=== PATIENT | male | born 1935 | race Caucasian/White ===

== ENCOUNTER 2017-07-06 09:39 | Emergency (ER) | payer MEDICARE, OTHER ==
--- NOTE | 2017-07-06 10:35 | RAD ---
EXAM: LEFT HAND 3 VIEWS: HISTORY: Pain. COMPARISON: None. FINDINGS: There is severe degenerative change of the 1st carpometacarpal joint space as well as the scaphotrape zium joint space. The trapezium and trapezoid bones appear to be irregular. Better interrogation wi th MRI would be beneficial. There is also irregularity involving the lunate bone. The possibility o f a scapholunate ligamentous injury cannot be excluded. There is dorsal soft tissue swelling. Correlate for possible infection. Distal radius and ulna do not demonstrate any obvious fractures. No evidence of fracture with regards to the phalanx. There are degenerative changes in interphalange al joint spaces, greatest in the 1st interphalangeal joint space. IMPRESSION: Extensive degenerative changes. Irregularity involving the carpal bones as above. Findings are pres umed to be on the basis of degenerative change. However, given soft tissue swelling, other more aggr essive processes cannot be excluded. MRI is recommended. POS: [facility]
[2017-07-06 11:35] LABS: #Eosinphils 0.1 thou/uL (0.0-0.7); #Lymphocytes 1.7 thou/uL (1.20-3.40); #Monocytes 1.1 thou/uL (0.11-0.59); #Neutrophils 4.8 thou/uL (1.40-6.50); %Basophils 0.2 % (0.0-1.0); %Eosinophils 1.5 % (0.0-10.0); %Lymphocytes 21.9 % (21.0-51.0); %Monocytes 14.1 % (0.0-10.0); Hematocrit 40.7 % (42.0-52.0); Mean Platelet Volume 7.5 fL (7.4-10.4); Red Blood Cell (RBC) Count 4.36 mill/uL (4.70-6.10); White Blood Cell (WBC) Count 7.7 thou/uL (4.8-10.8)
[2017-07-06 11:56] LABS: ALT (SGPT) 13 U/L (8-55); AST (SGOT) 23 U/L (5-34); Alkaline Phosphatase 88 U/L (40-150); Anion Gap 9 mmol/L (10-20); BUN (Urea Nitrogen) 17 mg/dL (8.4-25.7); Bilirubin, Total 1.2 mg/dL (0.2-1.2); Calc. Creatinine Clearance 0 mL/min (70-130); Calcium 9.1 mg/dL (7.8-10.44); Carbon Dioxide 28 mmol/L (23-31); Chloride 104 mmol/L (98-107); Estimated GFR-MDRD Greater than 90; Globulin 3.4 g/dL (2.4-3.5); Protein, Total 7.1 g/dL (5.8-8.1); Uric Acid 4.3 mg/dL (3.5-7.2)
[2017-07-06] MEDS ORDERED: traMADol HCl 50 MG TAB ONE (13:43)
== END 2017-07-06 13:52 | disposition home or self-care (01) ==
LOC: ERS 09:39
DX: M10.9 Gout, unspecified (principal); Z85.46 Personal history of malignant neoplasm of prostate
CPT/HCPCS: 36415; 80053; 82550; 84550; 85025; 85652; 86140

== ENCOUNTER 2021-01-30 22:58 | Inpatient (IN) | payer MEDICARE, OTHER ==
[2021-01-31 01:48] LABS: #Basophils 0.1 thou/uL (0.0-0.2); #Eosinphils 0.1 thou/uL (0.0-0.7); #Lymphocytes 1.5 thou/uL (1.20-3.40); #Monocytes 0.7 thou/uL (0.11-0.59); #Neutrophils 6.8 thou/uL (1.40-6.50); %Basophils 0.7 % (0.0-1.0); %Eosinophils 1.4 % (0.0-10.0); %Lymphocytes 16.5 % (21.0-51.0); %Monocytes 7.9 % (0.0-10.0); %Neutrophils 73.4 % (42.0-75.0); Hemoglobin 13.7 g/dL (14.0-18.0); Mean Corpuscular HGB CONC 32.9 g/dL (32.0-36.0); Mean Corpuscular Hemoglobin 32.4 pg (27.0-31.0); Mean Corpuscular Volume 98.4 fL (78.0-98.0); Mean Platelet Volume 7.5 fL (7.4-10.4); Platelet Count 182 thou/uL (130-400); RBC Distribution Width 13.1 % (11.5-14.5); Red Blood Cell (RBC) Count 4.22 mill/uL (4.70-6.10); White Blood Cell (WBC) Count 9.3 thou/uL (4.8-10.8)
[2021-01-31 01:59] LABS: ALT (SGPT) 16 U/L (8-55); AST (SGOT) 40 U/L (5-34); Albumin 3.8 g/dL (3.4-4.8); Alkaline Phosphatase 116 U/L (40-110); Anion Gap 19 mmol/L (10-20); BUN (Urea Nitrogen) 17 mg/dL (8.4-25.7); Bilirubin, Total 1.4 mg/dL (0.2-1.2); Calc. Creatinine Clearance 0 mL/min (70-130); Calcium 9.8 mg/dL (7.8-10.44); Carbon Dioxide 25 mmol/L (23-31); Chloride 95 mmol/L (98-107); Globulin 4.3 g/dL (2.4-3.5); Glucose 124 mg/dL (83-110); Potassium 4.1 mmol/L (3.5-5.1); Protein, Total 8.1 g/dL (5.8-8.1); Sodium 135 mmol/L (136-145)
[2021-01-31] MEDS ORDERED: Lorazepam 2 MG/ML VIAL ONE (02:17)
[2021-01-31 03:00] LABS: Bilirubin Negative (Negative); Blood, Urine Negative (Negative); Clarity Clear (Clear); Glucose, Urine (Dipstick) Normal (Negative); Ketone, Urine Negative (Negative); Leukocyte Negative Leu/uL (Negative); Nitrite Negative (Negative); Protein, Urine (Dipstick) Negative (Neg-Trace); Urobilinogen Normal mg/dL (Less than 2); pH, Urine 6.5 (5.0-9.0)
[2021-01-31] MEDS ORDERED: Benzocaine 20% Spray 60 ML CAN ONE (03:06)
[2021-01-31] MEDS ORDERED: Sodium Chloride 0.9% 1,000 ML IV SCH ×2 (04:30→10:16)
[2021-01-31] MEDS ORDERED: Ondansetron ODT 4 MG TAB SL PRN (04:30)
[2021-01-31] MEDS ORDERED: Ondansetron PF 4 MG/2 ML Vial IVP PRN ×2 (04:30→10:16)
[2021-01-31 05:37] VITALS: BMI 31.6
[2021-01-31] MEDS ORDERED: CEFAZOLIN 2 GM in Premix Bag 1 BAG IVPB SCH (10:15)
[2021-01-31] MEDS ORDERED: hydrALAZINE 20 MG/ML VIAL SLOW IVP PRN (10:16)
[2021-01-31] MEDS ORDERED: Ondansetron ODT 4 MG TAB PO PRN (10:16)
[2021-01-31] MEDS ORDERED: Ketorolac Tromethamine 30 MG/ML VIAL IVP SCH (10:30)
[2021-01-31] MEDS ORDERED: Acetaminophen 500 MG TAB PO SCH (10:30)
[2021-01-31] MEDS ORDERED: Gabapentin 300 MG CAP PO SCH (10:30)
[2021-01-31 15:52] LABS: SARS-CoV-2 PCR by NAA Not Detected (NotDetected)
[2021-01-31] MEDS: Famotidine 20 MG TAB PO SCH (21:12)
[2021-01-31] MEDS: Enoxaparin Sodium 40 MG/0.4 ML SYRINGE SC SCH (21:12)
[2021-02-01] MEDS: Famotidine 20 MG TAB PO SCH ×2 (08:38→21:41)
[2021-02-01] MEDS: Amlodipine 10 MG TAB PO SCH (08:38)
[2021-02-01] MEDS: Allopurinol 300 MG TAB PO SCH (08:38)
[2021-02-01] MEDS: Lisinopril 10 MG TAB PO SCH (08:38)
[2021-02-01] MEDS ORDERED: Sodium Chloride 0.9% 1,000 ML IV SCH (14:30)
[2021-02-01] MEDS: Sodium Chloride 0.9% 1,000 ML IV SCH (17:39)
[2021-02-01] MEDS: Enoxaparin Sodium 40 MG/0.4 ML SYRINGE SC SCH (21:41)
[2021-02-02] MEDS: Sodium Chloride 0.9% 1,000 ML IV SCH ×2 (01:08→09:09)
[2021-02-02] MEDS: Lisinopril 10 MG TAB PO SCH (09:10)
[2021-02-02] MEDS: Amlodipine 10 MG TAB PO SCH (09:10)
[2021-02-02] MEDS: Allopurinol 300 MG TAB PO SCH (09:10)
[2021-02-02] MEDS: Famotidine 20 MG TAB PO SCH ×2 (09:10→21:30)
[2021-02-02] MEDS ORDERED: Lidocaine 1% w/Epinephrine 1:100K 20 ML VIAL ONE (14:43)
[2021-02-02] MEDS ORDERED: Bupivacaine 0.25% HCL 30 ML VIAL ONE (14:43)
[2021-02-02] MEDS ORDERED: Fentanyl 100 MCG/2 ML VIAL ONE (14:46)
[2021-02-02] MEDS ORDERED: PHENYLEPHRINE-NS 100 MCG/ML 10 ML SYRINGE ONE (15:10)
[2021-02-02] MEDS ORDERED: PROPOFOL 200 MG/20 ML VIAL ONE (15:10)
[2021-02-02] MEDS ORDERED: Rocuronium Bromide 10 MG/ML (10ML VIAL) ONE (15:10)
[2021-02-02] MEDS ORDERED: Lidocaine 1% PF 5 ML VIAL ONE (15:10)
[2021-02-02] MEDS ORDERED: Dexamethasone 20 MG/5 ML VIAL ONE (15:10)
[2021-02-02] MEDS ORDERED: Ibuprofen 600 MG TAB PO PRN (15:20)
[2021-02-02] MEDS ORDERED: Acetaminophen 500 MG TAB PO PRN (15:20)
[2021-02-02] MEDS ORDERED: SUGAMMADEX SODIUM 500 MG/5 ML VIAL ONE (17:34)
[2021-02-02] MEDS ORDERED: Promethazine HCl 25 MG/ML VIAL IM PRN (18:03)
[2021-02-02] MEDS ORDERED: Promethazine HCl 25 MG/ML VIAL IVPB PRN (18:03)
[2021-02-02] MEDS ORDERED: Ondansetron HCl/PF 4 MG/2 ML Vial IVP PRN (18:03)
[2021-02-02] MEDS: traMADol HCl 50 MG TAB PO PRN ×2 (19:33→23:31)
[2021-02-02] MEDS: Enoxaparin Sodium 40 MG/0.4 ML SYRINGE SC SCH (21:31)
[2021-02-03 08:00] VITALS: BP 117/75; TEMP 98.1
[2021-02-03] MEDS ORDERED: Polyethylene Glycol 3350 17 GM Packet PO SCH (09:00)
== END 2021-02-03 09:00 | disposition home or self-care (01) | DRG 352 ==
LOC: ERS 22:58 → SJJU 01-31 02:03
PROVIDERS: ADMIT Specialist; ATTEND Specialist
PROC: 0D9670Z Drainage of Stomach with Drainage Device, Via Natural or Artificial Opening (ICD-10-PCS; 2021-01-31)
PROC: 0YUA4JZ Supplement Bilateral Inguinal Region with Synthetic Substitute, Percutaneous Endoscopic Approach (ICD-10-PCS; principal; 2021-02-02)
PROC: 8E0W4CZ Robotic Assisted Procedure of Trunk Region, Percutaneous Endoscopic Approach (ICD-10-PCS; 2021-02-02)
DX: K40.01 Bilateral inguinal hernia, with obstruction, without gangrene, recurrent (principal); Z20.822 Contact with and (suspected) exposure to COVID-19; I25.10 Atherosclerotic heart disease of native coronary artery without angina pectoris; E78.5 Hyperlipidemia, unspecified; I10 Essential (primary) hypertension; I48.91 Unspecified atrial fibrillation; G47.30 Sleep apnea, unspecified; Z95.1 Presence of aortocoronary bypass graft; Z85.46 Personal history of malignant neoplasm of prostate; Z79.899 Other long term (current) drug therapy; Z99.89 Dependence on other enabling machines and devices
CPT/HCPCS: 71045; 74018; 74176; 80053; 81003; 85025; 96374; C1781; J0690; J1100; J1650; J2060; J2704; J3010; S0020; U0003; U0005

== ENCOUNTER 2021-12-27 12:05 | Outpatient (CLI) | payer MEDICARE, OTHER ==
[2021-12-27 14:00] LABS: Hemoglobin 11.4 g/dL (13.5-17.5); Mean Corpuscular HGB CONC 32.5 g/dL (32.0-36.0); Mean Corpuscular Volume 98.6 fl (81.2-95.1); Mean Platelet Volume 10.4 fl (7.4-10.4); Platelet Count 120 10x3/uL (150-450); RBC Distribution Width 14.5 % (11.5-14.5); Red Blood Cell (RBC) Count 3.56 10x6/uL (4.32-5.72); White Blood Cell (WBC) Count 5.6 10x3/uL (3.5-10.5)
[2021-12-27 14:24] LABS: Anion Gap 15 mmol/L (10-20); BUN (Urea Nitrogen) 17 mg/dL (8.4-25.7); Calc. Creatinine Clearance 0 mL/min (70-130); Calcium 8.8 mg/dL (7.8-10.44); Carbon Dioxide 26 mmol/L (23-31); Chloride 107 mmol/L (98-107); Glucose 85 mg/dL (83-110); Potassium 4.4 mmol/L (3.5-5.1); Sodium 144 mmol/L (136-145)
[2021-12-28 00:01] LABS: SARS-CoV-2 PCR by NAA Not Detected (NotDetected)
== END 2021-12-27 12:06 | disposition home or self-care (01) ==
LOC: LABBT 12:05
PROVIDERS: ATTEND Student in an Organized Health Care Education/Training Program
DX: Z01.818 Encounter for other preprocedural examination (principal); R04.0 Epistaxis; D69.9 Hemorrhagic condition, unspecified; J34.89 Other specified disorders of nose and nasal sinuses; Z20.822 Contact with and (suspected) exposure to COVID-19
CPT/HCPCS: 80048; 85027; 93005; U0003; U0005; 93010

== ENCOUNTER 2021-12-28 09:27 | Day surgery (SDC) | payer MEDICARE, OTHER ==
[2021-12-27 12:59] VITALS: BMI 31.1
[2021-12-28] MEDS ORDERED: AFRIN NASAL MIST 15 ML BOT ONE ×3 (09:44→12:05)
[2021-12-28] MEDS ORDERED: Lidocaine 1% w/Epinephrine 1:100K 20 ML VIAL ONE (10:48)
[2021-12-28] MEDS ORDERED: fentaNYL Citrate/PF 100 MCG/2 ML SYRINGE ONE (11:03)
[2021-12-28] MEDS ORDERED: SUGAMMADEX SODIUM 200 MG/2 ML VIAL ONE (11:03)
[2021-12-28] MEDS ORDERED: Lidocaine 1% PF 5 ML VIAL ONE (11:20)
[2021-12-28] MEDS ORDERED: Ondansetron PF 4 MG/2 ML Vial ONE (11:20)
[2021-12-28] MEDS ORDERED: Glycopyrrolate 0.2 MG/ML 5 ML SYRINGE ONE (11:20)
[2021-12-28] MEDS ORDERED: Rocuronium Bromide 10 MG/ML (10ML VIAL) ONE (11:20)
[2021-12-28] MEDS ORDERED: PROPOFOL 200 MG/20 ML VIAL ONE (11:20)
[2021-12-28] MEDS ORDERED: ePHEDrine 50 MG/ML VIAL ONE (11:20)
== END 2021-12-28 14:20 | disposition home or self-care (01) ==
LOC: SDC 09:27
PROVIDERS: ATTEND Student in an Organized Health Care Education/Training Program
PROC: 093K8ZZ Control Bleeding in Nasal Mucosa and Soft Tissue, Via Natural or Artificial Opening Endoscopic (ICD-10-PCS; principal; 2021-12-28)
DX: R04.0 Epistaxis (principal); J34.89 Other specified disorders of nose and nasal sinuses; D69.9 Hemorrhagic condition, unspecified; M10.9 Gout, unspecified; I48.91 Unspecified atrial fibrillation; I10 Essential (primary) hypertension; G47.33 Obstructive sleep apnea (adult) (pediatric); Z85.46 Personal history of malignant neoplasm of prostate; Z79.899 Other long term (current) drug therapy; Z95.1 Presence of aortocoronary bypass graft
CPT/HCPCS: 93005; 93010; J2405; J2704; J3490

== ENCOUNTER 2022-03-17 14:00 | Outpatient (CLI) | payer MEDICARE, OTHER | END 2022-03-17 14:01 | disposition home or self-care (01) | LOC: CTENTCT 14:00 | PROVIDERS: ATTEND Student in an Organized Health Care Education/Training Program | DX: J32.9 Chronic sinusitis, unspecified (principal) | CPT/HCPCS: 70486 ==

== ENCOUNTER 2022-04-07 08:52 | Outpatient (CLI) | payer MEDICARE, OTHER ==
[2022-04-07 11:13] LABS: Hemoglobin 12.4 g/dL (13.5-17.5); Mean Corpuscular HGB CONC 33.1 g/dL (32.0-36.0); Mean Corpuscular Hemoglobin 31.7 pg (27.0-33.0); Mean Corpuscular Volume 95.9 fl (81.2-95.1); Mean Platelet Volume 10.5 fl (7.4-10.4); Platelet Count 111 10x3/uL (150-450); RBC Distribution Width 14.9 % (11.5-14.5); Red Blood Cell (RBC) Count 3.91 10x6/uL (4.32-5.72); White Blood Cell (WBC) Count 4.7 10x3/uL (3.5-10.5)
[2022-04-07 11:39] LABS: Anion Gap 13 mmol/L (10-20); BUN (Urea Nitrogen) 22 mg/dL (8.4-25.7); Calc. Creatinine Clearance 0 mL/min (70-130); Calcium 9.2 mg/dL (7.8-10.44); Carbon Dioxide 25 mmol/L (23-31); Chloride 108 mmol/L (98-107); Estimated GFR 77; Glucose 84 mg/dL (83-110); Potassium 3.8 mmol/L (3.5-5.1); Sodium 142 mmol/L (136-145)
== END 2022-04-07 08:53 | disposition home or self-care (01) ==
LOC: LABBT 08:52
PROVIDERS: ATTEND Thoracic Surgery (Cardiothoracic Vascular Surgery)
DX: Z01.818 Encounter for other preprocedural examination (principal); Z20.822 Contact with and (suspected) exposure to COVID-19
CPT/HCPCS: 80048; 85027; 87811; 93005; 93010

== ENCOUNTER 2022-04-08 06:40 | Day surgery (SDC) | payer MEDICARE, OTHER ==
[2022-04-07 10:35] VITALS: BMI 30.3
[2022-04-08] MEDS ORDERED: Lidocaine 1% 50ML VIAL ONE (09:25)
[2022-04-08] MEDS ORDERED: Heparin 10,000 UNITS/ 10 ML VIAL ONE (10:18)
[2022-04-08] MEDS ORDERED: Atropine Sulfate 1 mg/10 ml Syringe ONE (10:41)
[2022-04-08] MEDS ORDERED: Protamine Sulfate 50 MG/5 ML VIAL ONE (11:27)
[2022-04-08] MEDS ORDERED: Acetaminophen 500 MG TAB ONE (12:00)
[2022-04-08] MEDS ORDERED: Iopamidol 370 76% 50 ML VIAL FS ONE (15:07)
== END 2022-04-08 17:28 | disposition home or self-care (01) ==
LOC: SDC 06:40
PROVIDERS: ATTEND Thoracic Surgery (Cardiothoracic Vascular Surgery)
DX: R04.0 Epistaxis (principal); J32.9 Chronic sinusitis, unspecified; M10.9 Gout, unspecified; I10 Essential (primary) hypertension; I25.10 Atherosclerotic heart disease of native coronary artery without angina pectoris; G47.30 Sleep apnea, unspecified; Z79.899 Other long term (current) drug therapy; Z95.1 Presence of aortocoronary bypass graft
CPT/HCPCS: 36222; 36227; 61626; 75894; 85347 ×2; C1769; C1884; C1887; 36217; 36221; 36224; 36228; J0461; J1644; J2720; J3490; Q9967

== ENCOUNTER 2022-06-06 09:15 | Outpatient (CLI) | payer MEDICARE, OTHER ==
[2022-06-06] MEDS ORDERED: Iopamidol 370 76% 100 ML VIAL ONE (14:16)
== END 2022-06-06 09:16 | disposition home or self-care (01) ==
LOC: BICCT 09:15
PROVIDERS: ATTEND Internal Medicine Cardiovascular Disease
DX: E04.2 Nontoxic multinodular goiter (principal); I65.23 Occlusion and stenosis of bilateral carotid arteries
CPT/HCPCS: 70498; 76536; 82565; Q9967

== ENCOUNTER 2022-06-13 10:00 | Outpatient (CLI) | payer MEDICARE, OTHER ==
[2022-06-13] MEDS ORDERED: Iopamidol 370 76% 100 ML VIAL ONE (10:44)
== END 2022-06-13 10:01 | disposition home or self-care (01) ==
LOC: CT 10:00
PROVIDERS: ATTEND Internal Medicine Cardiovascular Disease
DX: I65.21 Occlusion and stenosis of right carotid artery (principal); I25.10 Atherosclerotic heart disease of native coronary artery without angina pectoris
CPT/HCPCS: 70498; 82565

== ENCOUNTER 2022-10-28 16:16 | Emergency (ER) | payer MEDICARE, OTHER ==
[2022-10-28 17:46] LABS: Bilirubin Negative (Negative); Blood, Urine Negative (Negative); Clarity Clear (Clear); Glucose, Urine (Dipstick) Normal (Negative); Ketone, Urine Negative (Negative); Leukocyte Negative Leu/uL (Negative); Nitrite Negative (Negative); Protein, Urine (Dipstick) Negative (Neg-Trace); Specific Gravity, Urine 1.007 (1.002-1.036); Urobilinogen Normal mg/dL (Less than 2)
[2022-10-28 18:53] LABS: #Eosinphils 0.2 thou/uL (0.0-0.7); #Lymphocytes 0.8 thou/uL (1.20-3.40); #Monocytes 0.5 thou/uL (0.11-0.59); %Basophils 0.6 % (0.0-1.0); %Eosinophils 3.6 % (0.0-10.0); %Lymphocytes 18.8 % (21.0-51.0); Mean Corpuscular HGB CONC 32.2 g/dL (32.0-36.0); Mean Corpuscular Hemoglobin 32.9 pg (27.0-31.0); Mean Platelet Volume 7.9 fL (7.4-10.4); Platelet Count 110 10x3/uL (130-400); RBC Distribution Width 14.5 % (11.5-14.5); Red Blood Cell (RBC) Count 2.72 mill/uL (4.70-6.10); White Blood Cell (WBC) Count 4.5 10x3/uL (4.8-10.8)
[2022-10-28 19:11] LABS: ALT (SGPT) 15 U/L (8-55); AST (SGOT) 28 U/L (5-34); Albumin 2.9 g/dL (3.4-4.8); Alkaline Phosphatase 85 U/L (40-110); Anion Gap 11 mmol/L (10-20); BUN (Urea Nitrogen) 18 mg/dL (8.4-25.7); Bilirubin, Total 1.2 mg/dL (0.2-1.2); Calc. Creatinine Clearance 0 mL/min (70-130); Calcium 8.6 mg/dL (7.8-10.44); Carbon Dioxide 27 mmol/L (23-31); Chloride 106 mmol/L (98-107); Estimated GFR 83; Globulin 2.8 g/dL (2.4-3.5); Glucose 140 mg/dL (83-110); Potassium 3.6 mmol/L (3.5-5.1); Protein, Total 5.7 g/dL (5.8-8.1); Sodium 140 mmol/L (136-145)
== END 2022-10-28 20:02 | disposition home or self-care (01) ==
LOC: ERS 16:16
DX: R33.9 Retention of urine, unspecified (principal); D72.819 Decreased white blood cell count, unspecified; I25.10 Atherosclerotic heart disease of native coronary artery without angina pectoris; I11.0 Hypertensive heart disease with heart failure; I50.9 Heart failure, unspecified; E78.5 Hyperlipidemia, unspecified; I50.32 Chronic diastolic (congestive) heart failure
CPT/HCPCS: 36415; 51702; 80048; 81003; 83880; 85025

== ENCOUNTER 2022-11-02 10:31 | Inpatient (IN) | payer MEDICARE, OTHER ==
[2022-11-02 11:22] LABS: #Eosinphils 0.2 thou/uL (0.0-0.7); #Lymphocytes 1.1 thou/uL (1.20-3.40); #Monocytes 0.6 thou/uL (0.11-0.59); #Neutrophils 2.8 thou/uL (1.40-6.50); %Basophils 0.7 % (0.0-1.0); %Eosinophils 4.2 % (0.0-10.0); %Lymphocytes 22.7 % (21.0-51.0); %Monocytes 13.3 % (0.0-10.0); %Neutrophils 59.2 % (42.0-75.0); Hemoglobin 9.2 g/dL (14.0-18.0); Mean Corpuscular HGB CONC 32.8 g/dL (32.0-36.0); Mean Corpuscular Hemoglobin 33.2 pg (27.0-31.0); Mean Platelet Volume 8.2 fL (7.4-10.4); Platelet Count 113 10x3/uL (130-400); RBC Distribution Width 14.9 % (11.5-14.5); Red Blood Cell (RBC) Count 2.77 mill/uL (4.70-6.10); White Blood Cell (WBC) Count 4.6 10x3/uL (4.8-10.8)
[2022-11-02 11:44] LABS: ALT (SGPT) 19 U/L (8-55); AST (SGOT) 36 U/L (5-34); Albumin 3.1 g/dL (3.4-4.8); Alkaline Phosphatase 101 U/L (40-110); Anion Gap 11 mmol/L (10-20); BUN (Urea Nitrogen) 23 mg/dL (8.4-25.7); Bilirubin, Total 1.2 mg/dL (0.2-1.2); Calc. Creatinine Clearance 0 mL/min (70-130); Calcium 8.7 mg/dL (7.8-10.44); Carbon Dioxide 26 mmol/L (23-31); Chloride 107 mmol/L (98-107); Estimated GFR 58; Globulin 3.3 g/dL (2.4-3.5); Glucose 83 mg/dL (83-110); Potassium 4.2 mmol/L (3.5-5.1); Protein, Total 6.4 g/dL (5.8-8.1); Sodium 140 mmol/L (136-145)
[2022-11-02 12:14] LABS: Bilirubin Negative (Negative); Blood, Urine Negative (Negative); Clarity Clear (Clear); Glucose, Urine (Dipstick) 500 mg/dL (Negative); Ketone, Urine Negative (Negative); Leukocyte Negative Leu/uL (Negative); Nitrite Negative (Negative); Protein, Urine (Dipstick) 10 mg/dL (Neg-Trace); Specific Gravity, Urine 1.024 (1.002-1.036); Urobilinogen 3 mg/dL (Less than 2)
[2022-11-02] MEDS ORDERED: Furosemide 40 MG/4 ML VIAL ONE (12:22)
[2022-11-02] MEDS ORDERED: Nitroglycerin 2% Ointment 1 INCH/1 GM Packet ONE (12:22)
[2022-11-02] MEDS ORDERED: Bisacodyl 5 MG TAB PO PRN (12:41)
[2022-11-02] MEDS ORDERED: Senokot S 8.6-50 MG TAB PO PRN (12:41)
[2022-11-02] MEDS ORDERED: Bisacodyl 10 MG SUPP PR PRN (12:41)
[2022-11-02] MEDS ORDERED: Ondansetron PF 4 MG/2 ML Vial IVP PRN (12:41)
[2022-11-02] MEDS ORDERED: Acetaminophen 325 MG TAB PO PRN (12:41)
[2022-11-02 16:12] VITALS: BMI 32.3
[2022-11-02] MEDS ORDERED: Empagliflozin 10 MG TAB PO SCH (17:15)
[2022-11-02] MEDS ORDERED: Potassium Chloride 20 MEQ TAB PO SCH (17:15)
[2022-11-02] MEDS ORDERED: Furosemide 40 MG/4 ML VIAL SLOW IVP SCH (17:15)
[2022-11-02 18:36] LABS: Bacteria/HPF None Seen HPF (None Seen); Bilirubin Negative (Negative); Blood, Urine 3+ (Negative); Clarity Turbid (Clear); Glucose, Urine (Dipstick) Normal (Negative); Ketone, Urine Negative (Negative); Leukocyte 25 Leu/uL (Negative); Nitrite Negative (Negative); Protein, Urine (Dipstick) 30 mg/dL (Neg-Trace); RBC/HPF Greater than 50 HPF (0-3); Specific Gravity, Urine 1.009 (1.002-1.036); Squamous Epithelial 0-3 HPF (0-3); Urobilinogen Normal mg/dL (Less than 2); WBC/HPF 0-3 HPF (0-3); pH, Urine 5.5 (5.0-9.0)
[2022-11-02 19:16] LABS: SARS-CoV-2 NAA Rapid Test Not Detected (NotDetected)
[2022-11-02] MEDS ORDERED: HYDROcodone/Acetaminophen 5/325 mg Tablet PO PRN (20:08)
[2022-11-02] MEDS: Atorvastatin Calcium 40 MG TAB PO SCH (21:16)
[2022-11-02] MEDS: Sucralfate 1 GM TAB PO SCH (21:17)
[2022-11-03 04:55] LABS: Reticulocyte Count 1.9 % (0.5-1.5)
[2022-11-03 04:59] LABS: Hemoglobin 8.9 g/dL (14.0-18.0); Mean Corpuscular HGB CONC 31.6 g/dL (32.0-36.0); Mean Corpuscular Hemoglobin 32.1 pg (27.0-31.0); Mean Platelet Volume 7.9 fL (7.4-10.4); Platelet Count 132 10x3/uL (130-400); RBC Distribution Width 14.5 % (11.5-14.5); Red Blood Cell (RBC) Count 2.79 mill/uL (4.70-6.10); White Blood Cell (WBC) Count 5.4 10x3/uL (4.8-10.8)
[2022-11-03 05:01] LABS: Hemoglobin A1c 4.8 % (4.0-6.0)
[2022-11-03 05:21] LABS: Anion Gap 12 mmol/L (10-20); BUN (Urea Nitrogen) 21 mg/dL (8.4-25.7); Calc. Creatinine Clearance 69 mL/min (70-130); Calcium 8.3 mg/dL (7.8-10.44); Carbon Dioxide 23 mmol/L (23-31); Chloride 106 mmol/L (98-107); Estimated GFR 60; Glucose 88 mg/dL (83-110); Iron 20 ug/dL (65-175); Iron Binding Capacity, Total 315 mcg/dL (261-462); Potassium 3.9 mmol/L (3.5-5.1); Sodium 137 mmol/L (136-145)
[2022-11-03 05:24] LABS: ALT (SGPT) 17 U/L (8-55); AST (SGOT) 30 U/L (5-34); Albumin 2.8 g/dL (3.4-4.8); Alkaline Phosphatase 87 U/L (40-110); Bilirubin, Direct 0.6 mg/dL (0.1-0.3); Bilirubin, Total 1.2 mg/dL (0.2-1.2); Protein, Total 5.8 g/dL (5.8-8.1)
[2022-11-03 05:29] LABS: Band 1 % (5-11); Eosinophils 8 % (0-10); Lymphocytes 22 % (21-51); MDiff Complete? YES; Macrocytosis SLIGHT = 6-15 cells (100X) (0-5/hpf); Monocytes 11 % (0-10); Neutrophil 58 % (42-75)
[2022-11-03 05:43] LABS: Ferritin 50.12 ng/mL (22-322)
[2022-11-03] MEDS: Furosemide 40 MG/4 ML VIAL SLOW IVP SCH ×2 (06:09→13:58)
[2022-11-03] MEDS: Tamsulosin HCl 0.4 MG CAP PO SCH (08:08)
[2022-11-03] MEDS: Sucralfate 1 GM TAB PO SCH ×4 (08:08→22:50)
[2022-11-03] MEDS: Empagliflozin 10 MG TAB PO SCH (08:09)
[2022-11-03] MEDS: Allopurinol 300 MG TAB PO SCH (08:09)
[2022-11-03] MEDS: Ferrous Sulfate 325 MG TAB PO SCH (08:09)
[2022-11-03] MEDS ORDERED: Lisinopril 10 MG TAB PO SCH (09:00)
[2022-11-03] MEDS ORDERED: Furosemide 40 MG/4 ML VIAL SLOW IVP SCH ×2 (09:00→22:00)
[2022-11-03] MEDS ORDERED: Potassium Chloride 20 MEQ TAB PO SCH (09:00)
[2022-11-03] MEDS ORDERED: Iron, Sodium Ferric Gluconate 250 MG in Sodium Chloride 0.9% 250 ML 250 ML IVPB SCH ×2 (13:00)
[2022-11-04 04:48] LABS: #Eosinphils 0.3 thou/uL (0.0-0.7); #Lymphocytes 1.2 thou/uL (1.20-3.40); #Monocytes 0.8 thou/uL (0.11-0.59); #Neutrophils 2.8 thou/uL (1.40-6.50); %Basophils 0.5 % (0.0-1.0); %Eosinophils 6.5 % (0.0-10.0); %Monocytes 14.7 % (0.0-10.0); %Neutrophils 55.3 % (42.0-75.0); Mean Corpuscular HGB CONC 32.4 g/dL (32.0-36.0); Mean Corpuscular Hemoglobin 32.5 pg (27.0-31.0); Mean Platelet Volume 7.9 fL (7.4-10.4); Platelet Count 118 10x3/uL (130-400); RBC Distribution Width 14.6 % (11.5-14.5); Red Blood Cell (RBC) Count 2.76 mill/uL (4.70-6.10); White Blood Cell (WBC) Count 5.1 10x3/uL (4.8-10.8)
[2022-11-04 05:08] LABS: Anion Gap 12 mmol/L (10-20); BUN (Urea Nitrogen) 20 mg/dL (8.4-25.7); Calc. Creatinine Clearance 69 mL/min (70-130); Calcium 8.5 mg/dL (7.8-10.44); Carbon Dioxide 27 mmol/L (23-31); Chloride 104 mmol/L (98-107); Estimated GFR 60; Glucose 87 mg/dL (83-110); Magnesium 2.1 mg/dL (1.6-2.6); Potassium 3.6 mmol/L (3.5-5.1); Sodium 139 mmol/L (136-145)
[2022-11-04] MEDS: Furosemide 40 MG/4 ML VIAL SLOW IVP SCH ×2 (05:54→14:53)
[2022-11-04] MEDS ORDERED: Electrolyte Replacement Protocol 1 EACH FS SCH (08:00)
[2022-11-04] MEDS ORDERED: Potassium Chloride 20 MEQ TAB PO SCH ×2 (08:45→17:00)
[2022-11-04] MEDS: Lisinopril 5 MG TAB PO SCH (09:12)
[2022-11-04] MEDS: Ferrous Sulfate 325 MG TAB PO SCH (09:12)
[2022-11-04] MEDS: Empagliflozin 10 MG TAB PO SCH (09:13)
[2022-11-04] MEDS: Allopurinol 300 MG TAB PO SCH (09:13)
[2022-11-04] MEDS: Sucralfate 1 GM TAB PO SCH ×4 (09:13→22:27)
[2022-11-04] MEDS: Aspirin 81 mg Enteric Coated Tablet PO SCH (09:13)
[2022-11-04] MEDS: Tamsulosin HCl 0.4 MG CAP PO SCH (09:14)
[2022-11-04] MEDS ORDERED: Furosemide 40 MG/4 ML VIAL SLOW IVP SCH (20:00)
[2022-11-04] MEDS: Atorvastatin Calcium 40 MG TAB PO SCH (22:27)
[2022-11-05 05:18] LABS: #Eosinphils 0.4 thou/uL (0.0-0.7); #Lymphocytes 1.4 thou/uL (1.20-3.40); #Monocytes 0.9 thou/uL (0.11-0.59); #Neutrophils 3.9 thou/uL (1.40-6.50); %Basophils 0.4 % (0.0-1.0); %Eosinophils 5.9 % (0.0-10.0); %Lymphocytes 21.6 % (21.0-51.0); %Monocytes 13.8 % (0.0-10.0); %Neutrophils 58.4 % (42.0-75.0); Mean Corpuscular HGB CONC 31.9 g/dL (32.0-36.0); Mean Corpuscular Hemoglobin 32.3 pg (27.0-31.0); Mean Platelet Volume 8.4 fL (7.4-10.4); Platelet Count 125 10x3/uL (130-400); RBC Distribution Width 14.9 % (11.5-14.5); Red Blood Cell (RBC) Count 2.79 mill/uL (4.70-6.10); White Blood Cell (WBC) Count 6.7 10x3/uL (4.8-10.8)
[2022-11-05] MEDS: Furosemide 40 MG/4 ML VIAL SLOW IVP SCH ×2 (05:34→14:01)
[2022-11-05 05:35] LABS: Anion Gap 11 mmol/L (10-20); BUN (Urea Nitrogen) 19 mg/dL (8.4-25.7); Calc. Creatinine Clearance 71 mL/min (70-130); Calcium 8.6 mg/dL (7.8-10.44); Carbon Dioxide 27 mmol/L (23-31); Chloride 104 mmol/L (98-107); Estimated GFR 69; Glucose 88 mg/dL (83-110); Magnesium 2.2 mg/dL (1.6-2.6); Potassium 3.8 mmol/L (3.5-5.1); Sodium 138 mmol/L (136-145)
[2022-11-05] MEDS: Lisinopril 5 MG TAB PO SCH (08:59)
[2022-11-05] MEDS: Potassium Chloride 20 MEQ TAB PO SCH ×2 (08:59→18:08)
[2022-11-05] MEDS: Finasteride 5 MG TAB PO SCH (08:59)
[2022-11-05] MEDS: Allopurinol 300 MG TAB PO SCH (08:59)
[2022-11-05] MEDS: Ferrous Sulfate 325 MG TAB PO SCH (08:59)
[2022-11-05] MEDS: Tamsulosin HCl 0.4 MG CAP PO SCH (09:00)
[2022-11-05] MEDS: Empagliflozin 10 MG TAB PO SCH (09:00)
[2022-11-05] MEDS: Aspirin 81 mg Enteric Coated Tablet PO SCH (09:01)
[2022-11-05] MEDS: Sucralfate 1 GM TAB PO SCH ×4 (09:01→21:45)
[2022-11-06 05:28] LABS: Anion Gap 9 mmol/L (10-20); BUN (Urea Nitrogen) 18 mg/dL (8.4-25.7); Calc. Creatinine Clearance 77 mL/min (70-130); Calcium 8.4 mg/dL (7.8-10.44); Carbon Dioxide 28 mmol/L (23-31); Chloride 105 mmol/L (98-107); Estimated GFR 76; Glucose 112 mg/dL (83-110); Potassium 3.7 mmol/L (3.5-5.1); Sodium 138 mmol/L (136-145)
[2022-11-06 05:34] LABS: Hemoglobin 9.2 g/dL (14.0-18.0); Hypochromia SLIGHT = 6-15 cells (100X) (0-5/hpf); Lymphocytes 26 % (21-51); MDiff Complete? YES; Macrocytosis SLIGHT = 6-15 cells (100X) (0-5/hpf); Mean Corpuscular HGB CONC 32.7 g/dL (32.0-36.0); Mean Corpuscular Hemoglobin 32.7 pg (27.0-31.0); Mean Platelet Volume 7.9 fL (7.4-10.4); Monocytes 8 % (0-10); Neutrophil 64 % (42-75); Platelet Count 116 10x3/uL (130-400); Platelet Morphology Comment Appears Decreased; RBC Distribution Width 14.8 % (11.5-14.5); Reactive Lymphocytes 2 % (0-10); White Blood Cell (WBC) Count 6.1 10x3/uL (4.8-10.8)
[2022-11-06] MEDS: Potassium Chloride 20 MEQ TAB PO SCH ×2 (07:37→17:36)
[2022-11-06] MEDS: Ferrous Sulfate 325 MG TAB PO SCH (07:37)
[2022-11-06] MEDS ORDERED: Magnesium 2 GM/50 ML(in water) 2 GM in Premix Bag 1 BAG IVPB SCH (08:00)
[2022-11-06] MEDS: Furosemide 20 MG TAB PO SCH ×2 (08:03→14:38)
[2022-11-06] MEDS: Tamsulosin HCl 0.4 MG CAP PO SCH (08:03)
[2022-11-06] MEDS: Empagliflozin 10 MG TAB PO SCH (08:04)
[2022-11-06] MEDS: Allopurinol 300 MG TAB PO SCH (08:04)
[2022-11-06] MEDS: Aspirin 81 mg Enteric Coated Tablet PO SCH (08:04)
[2022-11-06] MEDS: Finasteride 5 MG TAB PO SCH (08:04)
[2022-11-06] MEDS: Sucralfate 1 GM TAB PO SCH ×3 (08:04→17:37)
[2022-11-06] MEDS: Lisinopril 5 MG TAB PO SCH (10:03)
[2022-11-06 15:23] VITALS: TEMP 98.7
[2022-11-06 15:54] VITALS: BP 121/52
== END 2022-11-06 18:35 | disposition home or self-care (01) | DRG 291 ==
LOC: SUATTDRO 10:31 → ERS 10:31 → ERHOLD 13:00 → 2NO 15:44
PROVIDERS: ADMIT Family Medicine; ATTEND Family Medicine
PROC: 5A09457 Assistance with Respiratory Ventilation, 24-96 Consecutive Hours, Continuous Positive Airway Pressure (ICD-10-PCS; principal; 2022-11-03)
DX: I11.0 Hypertensive heart disease with heart failure (principal); I50.33 Acute on chronic diastolic (congestive) heart failure; I25.10 Atherosclerotic heart disease of native coronary artery without angina pectoris; E78.5 Hyperlipidemia, unspecified; E07.1 Dyshormogenetic goiter; D50.9 Iron deficiency anemia, unspecified; N50.89 Other specified disorders of the male genital organs; N28.1 Cyst of kidney, acquired; C61 Malignant neoplasm of prostate; I48.0 Paroxysmal atrial fibrillation; R33.9 Retention of urine, unspecified; D72.819 Decreased white blood cell count, unspecified; M10.9 Gout, unspecified; Z95.1 Presence of aortocoronary bypass graft; Z79.82 Long term (current) use of aspirin; Z95.0 Presence of cardiac pacemaker; Z95.2 Presence of prosthetic heart valve; Z98.890 Other specified postprocedural states; Z79.899 Other long term (current) drug therapy; Z87.19 Personal history of other diseases of the digestive system; Z20.822 Contact with and (suspected) exposure to COVID-19
CPT/HCPCS: 36415; 51702; 71045; 71046; 74176; 80048; 80053; 80076; 81003; 82550; 82607; 82728; 83036; 83540; 83550; 83735; 83880; 84153; 84443; 84484; 85025; 85046; 86850; 86900; 86901; 93005; 93306; 93798; 94760; 96374; J1940; J2916; J3475; J7050; U0002

== ENCOUNTER 2023-05-23 07:07 | Day surgery (SDC) | payer MEDICARE, OTHER ==
[2023-05-16 09:44] VITALS: BMI 28.3
[2023-05-16 10:44] LABS: INR-International Normal Ratio 1.2; Prothrombin Time 12.6 sec (9.5-12.1)
[2023-05-16 10:50] LABS: Hematocrit 39.6 % (38.8-50.0); Hemoglobin 12.9 g/dL (13.5-17.5); Mean Corpuscular HGB CONC 32.6 g/dL (32.0-36.0); Mean Corpuscular Hemoglobin 32.7 pg (27.0-33.0); Mean Corpuscular Volume 100.3 fl (81.2-95.1); Mean Platelet Volume 10.2 fl (7.4-10.4); Platelet Count 128 10x3/uL (150-450); RBC Distribution Width 15.5 % (11.5-14.5); Red Blood Cell (RBC) Count 3.95 10x6/uL (4.32-5.72); White Blood Cell (WBC) Count 5.3 10x3/uL (3.5-10.5)
[2023-05-16 10:55] LABS: Anion Gap 14 mmol/L (10-20); BUN (Urea Nitrogen) 14 mg/dL (8.4-25.7); Calc. Creatinine Clearance 86 mL/min (70-130); Calcium 8.7 mg/dL (7.8-10.44); Carbon Dioxide 25 mmol/L (23-31); Chloride 106 mmol/L (98-107); Estimated GFR 84; Glucose 89 mg/dL (83-110); Potassium 3.8 mmol/L (3.5-5.1); Sodium 141 mmol/L (136-145)
[2023-05-23] MEDS ORDERED: Lidocaine 1% (PF) 30 ML VIAL ONE (07:18)
[2023-05-23] MEDS ORDERED: Gentamicin 80 MG/2 ML VIAL ONE (07:18)
[2023-05-23] MEDS ORDERED: Clindamycin/D5W 900 mg/50 ml Premix Bag ONE (07:18)
[2023-05-23] MEDS ORDERED: CEFAZOLIN 2 GM VIAL ONE (07:45)
[2023-05-23] MEDS ORDERED: Propofol 1,000 MG/100 ML VIAL IV ONE (07:56)
[2023-05-23] MEDS ORDERED: PROPOFOL 200 MG/20 ML VIAL ONE (08:12)
[2023-05-23] MEDS ORDERED: PHENYLEPHRINE-NS 100 MCG/ML 10 ML SYRINGE ONE (08:12)
[2023-05-23] MEDS ORDERED: fentaNYL 50 mcg/mL 1 mL Vial ONE (09:08)
[2023-05-23] MEDS ORDERED: Iopamidol 370 76% 100 ML VIAL ONE (09:11)
== END 2023-05-23 14:35 | disposition home or self-care (01) ==
LOC: SDC 07:07
PROVIDERS: ATTEND Internal Medicine Cardiovascular Disease
PROC: 0JH604Z Insertion of Pacemaker, Single Chamber into Chest Subcutaneous Tissue and Fascia, Open Approach (ICD-10-PCS; principal; 2023-05-23)
DX: I48.21 Permanent atrial fibrillation (principal); I49.5 Sick sinus syndrome; I50.42 Chronic combined systolic (congestive) and diastolic (congestive) heart failure; I11.0 Hypertensive heart disease with heart failure; M10.9 Gout, unspecified; I35.0 Nonrheumatic aortic (valve) stenosis; I10 Essential (primary) hypertension; D50.0 Iron deficiency anemia secondary to blood loss (chronic); E78.00 Pure hypercholesterolemia, unspecified; I65.23 Occlusion and stenosis of bilateral carotid arteries; Z98.890 Other specified postprocedural states; Z96.659 Presence of unspecified artificial knee joint; Z79.899 Other long term (current) drug therapy; Z87.19 Personal history of other diseases of the digestive system; Z92.89 Personal history of other medical treatment; Z95.0 Presence of cardiac pacemaker
CPT/HCPCS: 33207; 33225; 71045; 80048; 85027; 85610; 93005; C1769 ×3; C1894; C1898; C1900; C2621; J3010; J1580; J2001; J2704; J3490